=== PATIENT | male | born 1965 | race Caucasian/White ===

== ENCOUNTER → 2020-08-05 08:29 | Outpatient (CLI) | payer OTHER, SELFPAY ==
[2020-07-22 07:08] VITALS: BMI 27.0
--- NOTE | 2020-08-05 14:11 | PFTCOMP_ITS ---
COMPLETE PULMONARY FUNCTION TEST INTERPRETATION Brief HPI: Patient is a 55 year old male, currently under the care of Dr. Leiva, who presents to [facility] for complete pulmonary function tests secondary to diagnosis of dyspnea. Respiratory therapist reports good effort and reproducible results. Interpretation: Forced expiration spirometry shows no large airways obstructive ventilatory defect with an FEV1 of 72% predicted. There is no significant bronchodilator response by strict ATS criteria. Spirograms are of good quality and plateau normally. Prebronchodilator spirometry shows exhalation for only 3 seconds, likely underestimating FVC. The respiratory flow volume loop shows a normal pattern. Lung volumes by body plethysmography show a decreased total lung capacity at 5.86 L, 79% predicted. All other lung volumes are reduced symmetrically. Diffusion capacity by carbon monoxide is at the lower limit of normal at 79% predicted. The airway resistance is normal. No previous pulmonary function tests were available for review. Impression: Mild restrictive ventilatory defect with a symmetric reduction diffusing capacity
== END ==
PROVIDERS: PCP Family Medicine; Referring Provider Internal Medicine Critical Care Medicine; Visit Provider Internal Medicine Critical Care Medicine
DX: R06.02 Shortness of breath (principal)
CPT/HCPCS: 94060; 94726; 94729

== ENCOUNTER → 2020-08-19 07:55 | Outpatient (CLI) | payer OTHER, SELFPAY ==
[2020-07-22 07:08] VITALS: BMI 27.0
[2020-08-19 10:20] VITALS: PULSE 59; PULSE 63; PULSE 64; PULSE 70; PULSE 71; O2SAT 93; O2SAT 95; O2SAT 96; O2SAT 97
--- NOTE | 2020-08-19 14:33 | PCM.PSN.6M ---
PSN 6 Minute Walk Test 6 Minute Walk Test 6 Minute Walk Test: 6 Minute Walk Test PSN:6-Minute Walk Test Start: 08/19/20 10:18 Freq: Status: Active Protocol: RESP.6MINW Document 08/19/20 10:20 [facility] (Rec: 08/19/20 10:25 [facility] [id number]) 6 Minute Walk Test Date Performed 08/19/20 Time Performed 08:15 Height 6 ft 1 in Weight: 95.254 kg Weight in Pounds 210.[address]: Keenan Leiva Assistive device used: None Pre-test Oxygen Delivery Method Room Air Pulse Ox (%) 97 Pulse Rate (60-100 beats/min) 59 L Dyspnea Jewels Scale (0-10) 3 Reported Symptoms Increased Work of Breathing 1st minute Oxygen Delivery Method Room Air Pulse Ox (%) 95 Pulse Rate (60-100 beats/min) 63 Dyspnea Jewels Scale (0-10) 3 Number of Rests Taken 0 Reported Symptoms Increased Work of Breathing 2nd minute Oxygen Delivery Method Room Air Pulse Ox (%) 95 Pulse Rate (60-100 beats/min) 64 Dyspnea Jewels Scale (0-10) 3 Number of Rests Taken 0 Reported Symptoms Increased Work of Breathing 3rd minute Oxygen Delivery Method Room Air Pulse Ox (%) 96 Pulse Rate (60-100 beats/min) 70 Dyspnea Jewels Scale (0-10) 3 Number of Rests Taken 0 Reported Symptoms Increased Work of Breathing 4th minute Oxygen Delivery Method Room Air Pulse Ox (%) 93 Pulse Rate (60-100 beats/min) 71 Dyspnea Jewels Scale (0-10) 3 Number of Rests Taken 0 Reported Symptoms Increased Work of Breathing 5th minute Oxygen Delivery Method Room Air Pulse Ox (%) 95 Pulse Rate (60-100 beats/min) 70 Dyspnea Jewels Scale (0-10) 3 Number of Rests Taken 0 Reported Symptoms Increased Work of Breathing 6th minute Oxygen Delivery Method Room Air Pulse Ox (%) 95 Pulse Rate (60-100 beats/min) 71 Dyspnea Jewels Scale (0-10) 3 Number of Rests Taken 0 Reported Symptoms Increased Work of Breathing Post-test Oxygen Delivery Method Room Air Pulse Ox (%) 96 Pulse Rate (60-100 beats/min) 63 Dyspnea Jewels Scale (0-10) 3 Reported Symptoms Increased Work of Breathing Full Laps Walked 17 Partial Lap, Number of Tiles Walked 33 Total Distance Walked (ft) 1036 The patient was able to ambulate 1036 feet over the course of 6 minutes on room air with no assistive devices or breaks. The patient did desaturate as low as 93% and had no significant tachycardia. These findings are consistent with a normal walking oximetry. No supplemental oxygen is indicated at this time.
== END ==
PROVIDERS: PCP Family Medicine; Referring Provider Internal Medicine Critical Care Medicine; Visit Provider Internal Medicine Critical Care Medicine
DX: R06.02 Shortness of breath (principal)
CPT/HCPCS: 94618

== ENCOUNTER → 2020-11-12 15:49 | Outpatient (CLI) | payer OTHER, SELFPAY ==
[2020-08-28 07:38] VITALS: BMI 27.0
--- NOTE | 2020-11-12 15:51 | CT_ITS ---
STUDY: CT CHEST WITHOUT CONTRAST REASON FOR EXAM: Male, 55 years old. follow pulmonary nodules RADIATION DOSAGE (If Supplied By Facility): CTDIvol = ( 16.38 ) mGy, DLP = ( 585.19 ) mGycm TECHNIQUE: Transaxial imaging was performed without the administration of intravenous contrast material. Multiplanar coronal and sagittal images were reformatted. Individualized dose optimization techniques were used for this CT. COMPARISON: None. FINDINGS: There are numerous noncalcified pulmonary nodules in multiple pulmonary lobes. For instance, mildly irregular nodule the posterior left upper lobe measures 1.2 x 1.7 cm on image 40 of series 4. Some of the nodules are partially calcified. No airspace consolidation. There are scattered linear fibrotic changes. Localized predominantly linear, although component of nodular, density of the bilateral lung apices extending to the pleural surface. Normal variant azygos fissure. No pleural effusion. Normal heart and pericardium. Calcified and noncalcified mediastinal and bilateral hilar lymph nodes. No dominant soft tissue more mass. Normal hilar regions. Normal unenhanced pulmonary arteries. Normal aorta arch and descending thoracic aorta. No destructive bony process. There is no demonstrated abnormality of the visualized upper abdomen. CT/Chest without Contrast IMPRESSION: 1. Multiple bilateral pulmonary nodules with largest localized nodule in the posterior left upper lobe measuring up to 17 mm. Some of the nodules demonstrate calcification. Bilateral upper lobe reticular and nodular densities extending to the pleural apices. Calcified hilar and mediastinal lymph nodes. The constellation of findings are nonspecific but raises possibility of silicosis or other pneumoconiosis. Comparison to prior imaging recommended as well as correlation with history/occupational exposure. Fleischner Society Guidelines for low-risk patients recommend follow-up chest CT at 3-6 months. If unchanged consider an additional follow-up CT at 18-24 months. For high-risk patients (smoking history or other known risk factors) initial follow-up chest CT at 3-6 months and if unchanged, 18-24 months. Electronically Signed: Kevin Patel MD ([place]) at 8:50 EDT , Service support ,
== END ==
PROVIDERS: PCP Family Medicine; Referring Provider Nurse Practitioner Acute Care; Visit Provider Nurse Practitioner Acute Care
DX: R91.8 Other nonspecific abnormal finding of lung field (principal)
CPT/HCPCS: 71250

== ENCOUNTER → 2020-11-25 07:25 | Outpatient (CLI) | payer OTHER, SELFPAY ==
[2020-11-25 05:51] VITALS: BMI 28.0
[2020-11-25 08:30] LABS: Absolute Lymphocyte Count 0.95 X10^3/uL (0.83-4.51); Absolute Neutrophil Count 4.2 X10^3/uL (2.0-7.7); Basophil# 0.05 X10^3/uL; Basophil% 0.8 % (0-1); Eosinophil# 0.15 X10^3/uL; Eosinophils% 2.5 % (0-5); Hematocrit 46.9 % (40-54); Hemoglobin 15.9 g/dL (13.0-16.5); Lymphocyte # 0.95 X10^3/ul (0.83-4.51); Lymphocyte % 15.8 % (19-41); Mean Corp Hgb Conc 33.9 g/dL (32-36); Mean Corpuscular Hgb 29.8 pg (27.0-32.0); Mean Corpuscular Volume 87.8 fL (80-94); Mean Platelet Vol. 10.6 fl (6.2-12.0); Monocyte# 0.64 X10^3/uL; Monocyte% 10.7 % (0-10); NRBC Flagged by Analyzer 0 % (0-5); Neutrophil # 4.18 X10^3/uL (2.7-7.7); Neutrophil % 69.7 % (47-70); Platelet Count 215 K/mm3 (150-450); RBC Distribution Width CV 12.4 % (11.6-14.6); RBC Distribution Width SD 39.8 fl (35.1-43.9); Red Blood Count 5.34 M/mm3 (4.6-6.2)
[2020-11-25 08:45] LABS: International Normalized Ratio 1.1; Prothrombin Time (Protime)PT. 13.1 SECONDS (11.7-14.9)
[2020-11-25 09:05] LABS: Rheumatoid Factor < 10.0 IU/mL (<15); Thyroid Stim Hormone (TSH) 1.43 uIU/mL (0.358-3.74)
[2020-11-26 16:08] LABS: ANTINUCLEAR ANTIBODIES DIRECT Positive (Negative); Anti-Centromere B Ab <0.2 AI (0.0-0.9); Anti-Chromatin <0.2 AI (0.0-0.9); Anti-Jo <0.2 AI (0.0-0.9); Anti-Scleroderma-70 AB <0.2 AI (0.0-0.9); RNP Ab 0.2 AI (0.0-0.9); SJOGREN'S Anti-SS-A test < 0.2 AI (0.0-0.9); SJOGREN'S Anti-SS-B test 3.4 AI (0.0-0.9); Smith Ab <0.2 AI (0.0-0.9)
[2020-11-26 21:27] LABS: Anti-dsDNA Ab <1 IU/mL (0-9)
== END ==
PROVIDERS: PCP Family Medicine; Referring Provider Internal Medicine Critical Care Medicine; Visit Provider Internal Medicine Critical Care Medicine
DX: R91.8 Other nonspecific abnormal finding of lung field (principal)
CPT/HCPCS: 36415; 84443; 85025; 85610; 86038; 86200; 86225; 86235; 86256; 86431; 86698; 87385

== ENCOUNTER → 2021-01-07 09:00 | Outpatient (CLI) | payer OTHER, SELFPAY ==
[2021-01-07] VITALS (8 sets, daily range): BP systolic 112–144; BP diastolic 70–89; PULSE 54–60; RESP 16–20; TEMP 36.6–37.1; O2SAT 97–100; BMI 28.3
--- NOTE | 2021-01-07 09:19 | CT_ITS ---
PROCEDURE: CT GUIDED CORE NEEDLE BIOPSY OF A left upper lobe LUNG LESION INDICATION: Male, 55 years old. TOBY Lung Nodule PHYSICIAN: Dr. POP Faulkner CONSENT: Written informed consent was obtained having explained the risks, benefits and alternatives in detail with the patient who accepted the risks and agreed to proceed. Laboratory review and clinical assessment was performed. CONSCIOUS SEDATION PROTOCOL: The Drugs used were: 2 mg Versed, IV., and 50 mcg Fentanyl, IV. The sedation time was: 14 minutes. Conscious sedation was started at 10:52 AM and terminated at 11:06 AM. The conscious sedation protocol was independently monitored. RADIATION DOSAGE (If Supplied By Facility): CTDIvol = ( 24 ) mGy, DLP = ( 706.58 ) mGycm Individualized dose optimization techniques were used for this CT. TECHNIQUE: The patient was placed in the prone position. A noncontrast CT was performed to localize the lesion in the left upper lobe . The skin surface was prepped and draped in a sterile fashion. 1% lidocaine was used for local anesthesia. Using CT guidance, a 20-gauge coaxial biopsy device was advanced to the periphery of the lesion. A total of 4 core specimens were obtained. The specimens were placed in a formalin solution. A post procedure CT demonstrated no adverse sequelae or pneumothorax. The patient tolerated the procedure well without adverse event. A negative biopsy does not exclude malignancy. Further imaging or clinical followup based on patient condition and degree of clinical suspicion for malignancy. Suggest rebiopsy, if biopsy results do not match with clinical scenario. CT/Biopsy/Inj or Needle Placement IMPRESSION: 1. CT directed core needle biopsy of the left upper lobe pulmonary nodule using CT image guidance with image documentation as described. Pathology results are pending. 2. Conscious Sedation protocol utilized with independent monitoring. Electronically Signed: Sánchez Reynolds MD at 11:51 EDT , Service support ,
--- NOTE | 2021-01-07 10:15 | RAD_ITS ---
STUDY: X-RAY CHEST REASON FOR EXAM: Male, 55 years old. Pneumothorax -- 2 hours post lung biopsy TECHNIQUE: AP inspiration and expiration views. COMPARISON: Comparison is made with prior study done earlier today. FINDINGS: The patient is status post left lung biopsy. No evidence of pneumothorax. RAD/Chest Insp/Exp 2 View IMPRESSION: No evidence of pneumothorax on the 2 hour post left lung biopsy radiograph. Electronically Signed: Sánchez Reynolds MD at 13:38 EDT , Service support ,
[2021-01-07 10:34] LABS: International Normalized Ratio 1.1; Prothrombin Time (Protime)PT. 13.1 SECONDS (11.7-14.9)
[2021-01-07 10:35] LABS: Partial Thromboplast Time 30.5 Seconds (24.1-36.2)
[2021-01-07] MEDS: fentaNYL 100 MCG/2 ML Ampul IV (10:52)
[2021-01-07] MEDS: Midazolam 2 MG/2 ML Syringe IV (10:52)
[2021-01-07] MEDS: Lidocaine 2% (20 ml mdv) 20 ML Vial INFILT (10:55)
--- NOTE | 2021-01-07 11:00 | ASPIGT_PTH ---
PATIENT: NIMCO CHRISTENSEN LOC: CT U#:[id number] AGE/SX: 59/M ROOM: RE01/07/[address]: Dr. Keenan Leiva DO : 1965 BED: DIS: SPEC #: [id number] RECD: 01/07/21 11:30 STATUS: XANDER RUBIOChristiano #: [id number] ROBERTA: 01/07/21 11:[address]: Keenan Leiva DEPT: SURGICAL PATHOLOGY RECD BY: Ria Browne ENTERED: 01/07/21 11:43 SP TYPE: ASP RAD OTHR DR: Dr. Trent Leiva MD Tissues: Lung, NOS Procedures: FNA Specimen Adequacy Special Stain Group II Special Stain Group I Surgery Specimen Level IV AFB Stain (control) GMS Stain (control) Imprint (control) HEADER OPERATION: Left upper lobe lung, CT-guided core biopsy PRE-OP DIAGNOSIS: Lung nodules TISSUE SUBMITTED: Left upper lobe lung 20-gauge core x4 MICROSCOPIC DIAGNOSIS Left upper lobe, CT-guided core biopsy: Lung parenchymal tissue with chronic inflammation and extensive non-necrotizing granulomatous inflammation. Negative for malignancy. See comment. SJ:rg 01/08/2021 COMMENT The specimen is evaluated at the time of biopsy by Dr. Carrasco. Immediate Evaluation = Negative for malignant cells, rare giant cell noted. Focal areas of hyalinization and fibrosis are also noted. Special stains for acid fast bacilli and fungi are negative for organisms; matched controls are appropriate. In appropriate clinical setting, the findings may represent sarcoidosis. Correlation with clinical, radiologic findings, laboratory studies and appropriate follow up are necessary. Case has been reviewed in consultation with Dr. Sanches who concurs with the above diagnosis. IDC:AM MICROSCOPIC DESCRIPTION Slides are reviewed. GROSS DESCRIPTION Received in fixative is one container labeled with the patient's name and designated left upper lobe lung, CT-guided core biopsy. The specimen consists of multiple irregular fragments of guzman soft tissue that in aggregate measure 2 x 0.1 x <0.1 cm. The specimen is totally submitted in one cassette. Two touch imprints are prepared at the time of core biopsy. / Lili 01/07/21 TC:3 CPT: 26881, 73753, 10648 x2
--- NOTE | 2021-01-07 12:45 | RAD_ITS ---
STUDY: X-RAY CHEST REASON FOR EXAM: Male, 55 years old. Pneumothorax -- immediately post lung biopsy TECHNIQUE: AP inspiration and expiration views. COMPARISON: Comparison is made with prior examination done earlier today. FINDINGS: Immediate post left lung biopsy radiographs. No evidence of pneumothorax. RAD/Chest Insp/Exp 2 View IMPRESSION: No evidence of pneumothorax on the immediate post left lung biopsy radiographs. Electronically Signed: Sánchez Reynolds MD at 12:30 EDT , Service support ,
== END | disposition home or self-care (01) ==
PROVIDERS: PCP Family Medicine; Referring Provider Internal Medicine Critical Care Medicine; Visit Provider Internal Medicine Critical Care Medicine
DX: R91.8 Other nonspecific abnormal finding of lung field (principal)
CPT/HCPCS: 32408; 36415; 71046; 77012; 85610; 85730; 88172; 88305; 88312; 88313; J7040; A4216

== ENCOUNTER → 2021-03-23 14:25 | Outpatient (CLI) | payer OTHER, SELFPAY ==
[2021-03-23 15:26] LABS: EXAGEN MAILED SPECIMEN
[2021-03-23 17:51] LABS: Color, Urine Yellow (Yellow); Glucose, Dipstick Normal (Normal); Ketone-Dipstick 5 mg/dl (Negative); Leukocyte Esterase-Dipstick Negative /ul (Negative); Nitrite-Dipstick Negative (Negative); Occult Blood-Urine 50 /ul (Negative); Protein-Dipstick Negative (Negative); Specific Gravity, Urine 1.025 (1.002-1.030); Urine Bilirubin Dipstick Negative (Negative); Urine Clarity Clear (Clear); Urine Urobilinogen Normal (Normal)
[2021-03-23 18:05] LABS: Absolute Lymphocyte Count 1.24 X10^3/uL (0.83-4.51); Absolute Neutrophil Count 6.7 X10^3/uL (2.0-7.7); Basophil# 0.05 X10^3/uL; Basophil% 0.6 % (0-1); Eosinophil# 0.08 X10^3/uL; Eosinophils% 0.9 % (0-5); Hematocrit 48.8 % (40-54); Hemoglobin 17.2 g/dL (13.0-16.5); Lymphocyte # 1.24 X10^3/ul (0.83-4.51); Mean Corp Hgb Conc 35.2 g/dL (32-36); Mean Corpuscular Hgb 30.3 pg (27.0-32.0); Mean Corpuscular Volume 86.1 fL (80-94); Mean Platelet Vol. 10.7 fl (6.2-12.0); Monocyte# 0.74 X10^3/uL; Monocyte% 8.4 % (0-10); NRBC Flagged by Analyzer 0 % (0-5); Neutrophil # 6.72 X10^3/uL (2.7-7.7); Neutrophil % 75.8 % (47-70); Platelet Count 235 K/mm3 (150-450); RBC Distribution Width CV 12.4 % (11.6-14.6); RBC Distribution Width SD 38.6 fl (35.1-43.9); Red Blood Count 5.67 M/mm3 (4.6-6.2); White Blood Count 8.9 K/mm3 (4.4-11.0)
[2021-03-23 18:07] LABS: Erythrocyte Sedimentation Rate 14 mm/hr (0-20)
[2021-03-23 18:22] LABS: ALB/GLOB Ratio 0.9 RATIO (0.9-2.4); AST(SGOT) 21 U/L (15-37); Alanine Aminotransfer ALT/SGPT 32 U/L (16-61); Alkaline Phosphatase 65 U/L (45-117); Anion Gap 6 (5-15); BUN 18 mg/dL (7-18); BUN/Creat Ratio 14.3 RATIO (10-20); CRP < 2.90 mg/L (0.0-3.0); Calcium,Total 9.4 mg/dL (8.5-10.1); Chloride 104 mmol/L (98-107); Creatinine, Serum 1.26 mg/dL (0.70-1.30); EST Glomerular Filtration Rate 63 mL/min (>60); Est Glom Filt Rate - Afr Amer 76 mL/min (>60); Globulin 4.5 g/dL (2.2-4.2); Glucose 83 mg/dL (74-106); Potassium 3.9 mmol/L (3.5-5.1); Protein, Total 8.5 g/dL (6.4-8.2); Sodium Level 138 mmol/L (136-145)
[2021-03-23 18:30] LABS: Protein, Urine (Random) 19.3 mg/dL (<11.9); Protein:Creat Ratio 80 mg/g CRE (0-200)
== END ==
PROVIDERS: PCP Family Medicine; Visit Provider Internal Medicine Rheumatology
DX: R76.8 Other specified abnormal immunological findings in serum (principal); R53.82 Chronic fatigue, unspecified; I10 Essential (primary) hypertension; F32.A Depression, unspecified; G47.33 Obstructive sleep apnea (adult) (pediatric); N52.9 Male erectile dysfunction, unspecified
CPT/HCPCS: 36415; 80053; 81002; 82570; 84156; 85025; 85652; 86140

== ENCOUNTER 2021-06-29 14:40 | Outpatient (CLI) | payer OTHER, SELFPAY ==
--- NOTE | 2021-06-29 14:50 | CT_ITS ---
EXAM: CT CHEST WITH INTRAVENOUS CONTRAST CLINICAL INDICATION: Lung Nodules TECHNIQUE: Helically acquired images were obtained of the chest with intravenous contrast. This CT exam was performed using one or more of the following dose reduction techniques: automated exposure control, adjustment of the mA and/or kV according to patient size, and/or use of iterative reconstruction technique. This report was created using [employer] report generation technology. CONTRAST: IV 100mL [id number] COMPARISON: Nov 12 2020 3:55pm FINDINGS: LUNGS AND PLEURAL SPACES: There are numerous noncalcified pulmonary nodules. There are also multiple pulmonary nodules that contain calcifications. No pleural effusion or thickening. No pneumothorax. HEART: Unremarkable. Heart size is normal. No pericardial effusion. No significant coronary artery calcifications. MEDIASTINUM: Stable calcified mediastinal and hilar lymph nodes. Esophagus is unremarkable. No hiatal hernia. THYROID: Unremarkable. No thyroid lesions. BONES/JOINTS: Unremarkable. No suspicious lytic or blastic abnormality. VASCULATURE: Unremarkable. Thoracic aorta is non-dilated. No thoracic aortic dissection. No obvious central pulmonary embolism although this study was not performed with the pulmonary embolism protocol. CT/Chest WITH Contrast IMPRESSION: Stable bilateral calcified and non calcified nodules. ACR Lung CT Screening Reporting T Data System (Lung-RADS) score: 2 - Benign Appearance or Behavior. Recommend continued annual screening with low-dose CT (LDCT) in 12 months. Electronically Signed: Brent Dexter MD at 15:32 EST Reading Location ID and State: [facility] / [place] , Service support ,
[2021-06-29 15:11] LABS: CREATININE FINGERSTICK 0.9 mg/dL (0.70-1.30); EGFR FINGERSTICK > 60.0000 mL/min (>60)
== END 2021-06-29 23:59 | disposition home or self-care (01) ==
PROVIDERS: PCP Family Medicine; Referring Provider Internal Medicine Critical Care Medicine; Visit Provider Internal Medicine Critical Care Medicine
DX: R91.1 Solitary pulmonary nodule (principal)
CPT/HCPCS: 71260; Q9967

== ENCOUNTER 2021-07-02 09:35 | Outpatient (CLI) | payer OTHER, SELFPAY ==
--- NOTE | 2021-07-03 13:19 | PFT ---
INTRODUCTION: The patient is a 55-year-old male that presents for pulmonary function studies secondary to a diagnosis of sarcoidosis. Respiratory therapy reported good patient effort. Bronchodilators were used during testing. INTERPRETATION: Forced expiration spirometry demonstrates no evidence of a large airways obstructive ventilatory defect. There was no significant response to aerosolized bronchodilators. Spirograms are of good quality and plateau normally. Body plethysmography was performed and reveals lung volumes to be within normal limits. Diffusing capacity by single breath CO is also within normal limits. IMPRESSION: Grossly normal pulmonary function studies.
== END 2021-07-02 23:59 | disposition home or self-care (01) ==
LOC: PSN 09:36
PROVIDERS: PCP Family Medicine; Referring Provider Internal Medicine Critical Care Medicine; Visit Provider Internal Medicine Critical Care Medicine
DX: D86.9 Sarcoidosis, unspecified (principal)
CPT/HCPCS: 94060; 94726; 94729